=== PATIENT | female | born 1975 | race American Indian/Alaskan Native ===

== ENCOUNTER 2018-08-07 08:18 | Outpatient (CLI) | payer BC ==
--- NOTE | 2018-08-07 10:56 | Fluoroscopy Report ---
UPPER GI SERIES WITH AIR-CONTRAST HISTORY: Gastroesophageal reflux disease without esophagitis. FINDINGS: 29 fluoroscopic images were captured. The bowel gas pattern is unremarkable. A lap band device is identified in the left upper quadrant which appears in good position. The phi angle measures 50 degrees. The esophagus is normal caliber and mucosal pattern throughout. Normal motility. No evidence for hiatal hernia or reflux during this exam. There is easy passage of the contrast agent through the lap band device. There is normal filling of the stomach and duodenum. No mass or ulceration is identified. IMPRESSION: Essentially unremarkable upper GI series. The lap band appears in good position with easy passage of the contrast agent. No evidence for slippage or erosion.
== END 2018-08-07 08:19 | disposition home or self-care (01) ==
LOC: FLUORO 08:18
PROVIDERS: ATTEND Specialist
DX: K21.9 Gastro-esophageal reflux disease without esophagitis (principal)
CPT/HCPCS: 74247

== ENCOUNTER 2019-01-08 11:00 | Outpatient (CLI) | payer BC | END 2019-01-08 11:01 | disposition home or self-care (01) | LOC: SLR 11:00 | PROVIDERS: ATTEND Otolaryngology | DX: G47.30 Sleep apnea, unspecified (principal); E66.9 Obesity, unspecified | CPT/HCPCS: G0399 ==

== ENCOUNTER 2019-02-06 11:00 | Outpatient (CLI) | payer BC | END 2019-02-06 11:01 | disposition home or self-care (01) | LOC: SLR 11:00 | PROVIDERS: ATTEND Otolaryngology | DX: G47.33 Obstructive sleep apnea (adult) (pediatric) (principal); R40.0 Somnolence; R06.83 Snoring | CPT/HCPCS: 95811 ==